=== PATIENT | female | born 1995 | race Caucasian/White ===

== ENCOUNTER 2017-08-01 18:02 | Emergency (ER) | payer BC ==
[2017-08-01 18:19] VITALS: RESP 18; TEMP 97.7
--- NOTE | 2017-08-01 18:38 | EDPHY ---
H & P Stated Complaint: dx flu/eyes reddened and swollen with blurry vision Time Seen by Provider: 08/01/17 18:37 HPI/ROS: CHIEF COMPLAINT: Anxiety, photophobia, recent diagnosis of influenza HISTORY OF PRESENT ILLNESS: The patient was recently diagnosed with influenza. She is on day 3 of Tamiflu. The patient was also given prescriptions for Tessalon Perles, Phenergan and dexamethasone. The patient reportedly developed some blurry vision, mild periorbital edema and slight photophobia while out in the sun today. She denies any fever, neck pain, numbness or weakness. The patient denies any additional acute complaints. The patient has been feeling quite anxious slightly. She has certainly been under a significant amount of stress. REVIEW OF SYSTEMS: A comprehensive 10 point review of systems is otherwise negative aside from elements mentioned in the history of present illness. Source: Patient Exam Limitations: No limitations - Personal History LMP (Females 10-55): Over 28 Days Ago Current Tetanus/Diphtheria Vaccine: Yes - Medical/Surgical History Hx Asthma: No Hx Chronic Respiratory Disease: No Hx Diabetes: No Hx Cardiac Disease: No Hx Renal Disease: No Hx Cirrhosis: No Hx Alcoholism: No Hx HIV/AIDS: No Hx Splenectomy or Spleen Trauma: No Other PMH: flu - Social History Smoking Status: Current some day smoker - Physical Exam Exam: General Appearance: Alert, no distress Eyes: Mild conjunctival injection bilaterally viral appearance in nature, no fairly discharge, no proptosis, pupils equal and reactive ENT, Mouth: Mucous membranes moist Respiratory: There are no retractions, lungs are clear to auscultation Cardiovascular: Regular rate and rhythm Gastrointestinal: Abdomen is soft and nontender, no masses, bowel sounds normal Neurological: 5/5 strength all 4 extremities, cranial nerves 2-12 intact Skin: Warm and dry, no rashes Musculoskeletal: Neck is supple nontender without meningeal symptoms Extremities: symmetrical, full range of motion Constitutional: Initial Vital Signs Temperature (C) 36.5 C 08/01/17 18:15 Heart Rate 105 H 08/01/17 18:15 Respiratory Rate 18 08/01/17 18:15 Blood Pressure 123/74 H 08/01/17 18:15 O2 Sat (%) 96 08/01/17 18:15 O2 Delivery Mode Room Air Allergies/Adverse Reactions: No Known Allergies Allergy (Unverified 08/01/17 18:13) Home Medications: Medication Instructions Recorded Benzonatate 08/01/17 DEXAMETHASONE 08/01/17 Minastrin 24 Fe Chewable Tab 08/01/17 Proair Hfa 08/01/17 Prochlorperazine Maleate 08/01/17 Tamiflu 08/01/17 Medical Decision Making ED Course/Re-evaluation: The patient is well-appearing without influenza. She has no complaints of blurry vision currently. I believe her conjunctival injection and mild photophobia are a result of her current influenza infection. I do not see an indication to start antibiotics. She has been having some symptoms of anxiety and is currently quite stressed in life. I will recommend that she stop taking dexamethasone as this may be contributing to her symptoms. The patient has been given the contact number of our on-call cashier and salesperson for any ongoing ocular complaints. She is discharged home with customary aftercare instructions and return precautions. Departure - Departure Disposition: Home, Routine, Self-Care Clinical Impression: Influenza Condition: Good Instructions: Influenza (ED) Additional Instructions: 1. I recommend stopping the dexamethasone as this may be contributing to her symptoms. 2. Return to the ED for severe headache, numbness, weakness or other concerns. 3. Tylenol and ibuprofen as needed for pain. 4. Please follow up with the cashier and salesperson, Dr. Chang, you have been referred to for any ongoing visual complaints or concerns. Referrals: Aristides Babin MD [Medical Doctor] - As per Instructions
[2017-08-01 19:23] VITALS: BP 123/68; PULSE 98; O2SAT 94
== END 2017-08-01 19:22 | disposition home or self-care (01) ==
DX: J11.1 Influenza due to unidentified influenza virus with other respiratory manifestations (principal); F17.200 Nicotine dependence, unspecified, uncomplicated

== ENCOUNTER 2017-10-02 12:21 | Emergency (ER) | payer BC ==
[2017-10-02] MEDS ORDERED: ONDANSETRON DISINTEGRATING 4 MG TAB PO ONE (12:35)
[2017-10-02 13:25] VITALS: BP 113/62
--- NOTE | 2017-10-02 13:34 | EDPHY ---
H & P Stated Complaint: vomiting since this am--mid abd pain, diarrhea Time Seen by Provider: 10/02/17 13:33 HPI/ROS: HPI: This is a 21-year-old female who presents with Chief Complaint: vomiting since this am--mid abdominal pain, diarrhea Location: Periumbilical Quality: Sharp cramping pain Duration: Approximately 1-3 hours Signs and Symptoms: no fever, + nausea, + vomiting, no hematemesis, no blood in stool, no abdominal bloating, + diarrhea, no back pain, no urinary symptoms, no vaginal bleeding/discharge, no indigestion, no chest pain, no shortness of breath Timing: Intermittent episodes Severity: Moderate Context: 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 She mostly complains of periumbilical abdominal cramping. She says is worse right before bowel movement. She denies any fever/ urinary symptoms. LMP 1-7 days ago. She reports that she has been able to sip liquids. She has not tried anything for the pain. No recent foreign travel. No recent antibiotic use. No drinking of contaminated well water. Modifying Factors: None Comment: ROS: see HPI Constitutional: No fever, no chills, no weight loss Eyes: No blurred vision Respiratory: No shortness of breath, no cough Cardiovascular: No chest pain, no palpitations Gastrointestinal: + nausea, + vomiting, + diarrhea, no hematemesis, no blood in stool Genitourinary: No dysuria, no blood in urine Extremities: No myalgias, no edema Neurologic: No weakness, no numbness Skin: No rashes, no petechiae Hematologic: No bruising, no bleeding MEDICAL/SURGICAL/SOCIAL HISTORY: Medical history: Generally healthy. Does not take any regular medications. Surgical history: Denies Social history: Employed. College student. Family history noncontributory. CONSTITUTIONAL: Extremely well-appearing young adult white female, awake and alert, no obvious distress HEENT: Atraumatic and normocephalic, PERRL, EOMI. Nares patent; no rhinorrhea; no nasal mucosal edema. Tympanic membranes clear. Oropharynx clear, no exudate and moist pink mucosa. Airway patent. No lymphadenopathy. No meningismus. Cardiovascular: Normal S1/S2, regular rate, regular rhythm, without murmur rub or gallop. PULMONARY/CHEST: Symmetrical and nontender. Clear to auscultation bilaterally. Good air movement. No accessory muscle usage. ABDOMEN: Soft, nondistended, nontender, no rebound, no guarding, no peritoneal signs, no masses or organomegaly. No CVAT. EXTREMITIES: 2/2 pulses, strength 5/5, no deformities, no clubbing, no cyanosis or edema. NEUROLOGICAL: no focal neuro deficits. GCS 15. SKIN: Warm and dry, no erythema. no rash. Good capillary refill. Source: Patient Exam Limitations: No limitations - Personal History LMP (Females 10-55): 1-7 Days Ago - Medical/Surgical History Hx Asthma: No Hx Chronic Respiratory Disease: No Hx Diabetes: No Hx Cardiac Disease: No Hx Renal Disease: No Hx Cirrhosis: No Hx Alcoholism: No Hx HIV/AIDS: No Hx Splenectomy or Spleen Trauma: No Other PMH: denies - Social History Smoking Status: Current some day smoker Constitutional: Initial Vital Signs Temperature (C) 37.1 C 10/02/17 12:28 Heart Rate 125 H 10/02/17 12:28 Respiratory Rate 24 H 10/02/17 12:28 Blood Pressure 96/74 L 10/02/17 12:28 O2 Sat (%) 99 10/02/17 12:28 O2 Delivery Mode Room Air Allergies/Adverse Reactions: No Known Allergies Allergy (Unverified 08/01/17 18:13) Home Medications: Medication Instructions Recorded Benzonatate 08/01/17 DEXAMETHASONE 08/01/17 Minastrin 24 Fe Chewable Tab 08/01/17 Proair Hfa 08/01/17 Prochlorperazine Maleate 08/01/17 Tamiflu 08/01/17 Ondansetron Odt [Zofran Odt 4 mg 4 mg PO Q4 PRN #12 tab 10/02/17 (*)] Promethazine HCl [Phenergan 25mg 25 mg PO Q6 PRN #12 tab 10/02/17 (*)] Medical Decision Making ED Course/Re-evaluation: Labs, IV fluids, IV medications, urinalysis ordered Given 2 L normal saline, IV Toradol, IV Ativan, IV Zofran with near complete relief of symptoms. Patient was in the emergency room for 3 hr without any episodes of vomiting or diarrhea. 1450: Reassessed abdomen now soft and nontender. Low yield for surgical process. Offered patient imaging of her abdomen and she politely declined. Labs reviewed; mild leukocytosis noted. No signs of JOAQUÍN/electrolyte imbalance/ elevated LFTs/pancreatitis Drinking fluids and eating Julian crackers prior to discharge. Advised continue supportive care. Vital signs stable at discharge. Resolution of tachycardia. This patient was seen under the supervision of my secondary supervising physician. I evaluated care for this patient independently. Discussed this patient with Dr. Oliver who did not see the patient. Differential Diagnosis: Abdominal pain including but not limited to appendicitis, cholecystitis, gastritis and urinary tract infection. - Data Points Laboratory Results: Laboratory Results 10/02/17 13:08 10/02/17 13:08 10/02/17 10/02/17 10/02/17 13:08 13:08 13:08 WBC 15.12 10^3/uL H 10^3/uL (3.80-9.50) RBC 4.52 10^6/uL 10^6/uL (4.18-5.33) Hgb 14.9 g/dL g/dL (12.6-16.3) Hct 44.4 % % (38.0-47.0) MCV 98.2 fL fL (81.5-99.8) MCH 33.0 pg pg (27.9-34.1) MCHC 33.6 g/dL g/dL (32.4-36.7) RDW 12.1 % % (11.5-15.2) Plt Count 195 10^3/uL 10^3/uL (150-400) MPV 13.4 fL H fL (8.7-11.7) Neut % (Auto) 92.6 % H % (39.3-74.2) Lymph % (Auto) 4.0 % L % (15.0-45.0) Frontier % (Auto) 2.3 % L % (4.5-13.0) Eos % (Auto) 0.6 % % (0.6-7.6) Baso % (Auto) 0.1 % L % (0.3-1.7) Nucleat RBC Rel Count 0.0 % % (0.0-0.2) Absolute Neuts (auto) 13.99 10^3/uL H 10^3/uL (1.70-6.50) Absolute Lymphs (auto) 0.61 10^3/uL L 10^3/uL (1.00-3.00) Absolute Monos (auto) 0.35 10^3/uL 10^3/uL (0.30-0.80) Absolute Eos (auto) 0.09 10^3/uL 10^3/uL (0.03-0.40) Absolute Basos (auto) 0.02 10^3/uL 10^3/uL (0.02-0.10) Absolute Nucleated RBC 0.00 10^3/uL 10^3/uL (0-0.01) Immature Gran % 0.4 % % (0.0-1.1) Immature Gran # 0.06 10^3/uL 10^3/uL (0.00-0.10) Sodium 142 mEq/L mEq/L (135-145) Potassium 4.4 mEq/L mEq/L (3.5-5.2) Chloride 107 mEq/L mEq/L (97-110) Carbon Dioxide 21 mEq/l L mEq/l (22-31) Anion Gap 14 mEq/L mEq/L (8-16) BUN 15 mg/dL mg/dL (7-23) Creatinine 0.6 mg/dL mg/dL (0.6-1.0) Estimated GFR > 60 Glucose 88 mg/dL mg/dL (70-100) Calcium 9.1 mg/dL mg/dL (8.5-10.4) Total Bilirubin 0.9 mg/dL mg/dL (0.1-1.4) Conjugated Bilirubin 0.5 mg/dL mg/dL (0.0-0.5) Unconjugated Bilirubin 0.4 mg/dL mg/dL (0.0-1.1) AST 24 IU/L IU/L (14-46) ALT 21 IU/L IU/L (9-52) Alkaline Phosphatase 57 IU/L IU/L (38-126) Total Protein 7.3 g/dL g/dL (6.3-8.2) Albumin 4.3 g/dL g/dL (3.5-5.0) Lipase 112 IU/L IU/L (23-300) Beta HCG, Qual NEGATIVE Medications Given: Discontinued Medications Sodium Chloride (Ns) 1,000 mls @ 0 mls/hr IV EDNOW ONE; Wide Open PRN Reason: Protocol Stop: 10/02/17 13:40 Last Admin: 10/02/17 13:45 Dose: 1,000 mls Sodium Chloride (Ns) 1,000 mls @ 0 mls/hr IV EDNOW ONE; Wide Open PRN Reason: Protocol Stop: 10/02/17 13:40 Last Admin: 10/02/17 13:45 Dose: 1,000 mls Ketorolac Tromethamine (Toradol) 30 mg IVP EDNOW ONE Stop: 10/02/17 13:40 Last Admin: 10/02/17 13:46 Dose: 30 mg Lorazepam (Ativan Injection) 1 mg IVP EDNOW ONE Stop: 10/02/17 13:40 Last Admin: 10/02/17 13:45 Dose: 1 mg Ondansetron HCl (Zofran Odt) 4 mg PO EDNOW ONE Stop: 10/02/17 12:36 Last Admin: 10/02/17 12:36 Dose: 4 mg Ondansetron HCl (Zofran) 4 mg IVP EDNOW ONE Stop: 10/02/17 13:40 Last Admin: 10/02/17 13:45 Dose: 4 mg Departure - Departure Disposition: Home, Routine, Self-Care Clinical Impression: Gastroenteritis Condition: Good Instructions: Gastroenteritis (ED) Additional Instructions: Consume a minimum of 8-10 glasses of water or electrolyte fluid replacement drinks that include Gatorade, Powerade, Pedialyte. Eat a bland diet for the next 48 hours and then slowly advance as tolerated. Take Zofran 1 tab every 4 hours as needed for nausea, vomiting. Take promethazine every 6 hours as needed N/V. (2nd line option) Return to the Emergency Room if symptoms do not resolve in the next 72 hours, you spike a fever > 102 F, or experience intractable abdominal pain/nausea/ vomiting. Referrals: [facility] [Other] - 3-4 days, if not improved Stand Alone Forms: School Excuse Prescriptions: Ondansetron Odt [Zofran Odt 4 mg (*)] 4 mg PO Q4 PRN #12 tab PRN Reason: Nausea/Vomiting, Use 1st Promethazine HCl [Phenergan 25mg (*)] 25 mg PO Q6 PRN #12 tab PRN Reason: Nausea/Vomiting, Use 2nd
[2017-10-02] MEDS ORDERED: LORazepam 2 MG/ML INJ IVP ONE (13:39)
[2017-10-02] MEDS ORDERED: ONDANSETRON 4 MG/2 ML VIAL IVP ONE (13:39)
[2017-10-02] MEDS ORDERED: KETOROLAC 30 MG/1 ML SDV IVP ONE (13:39)
[2017-10-02] MEDS ORDERED: NS 1,000 ML IV ONE ×2 (13:39)
[2017-10-02 14:25] LABS: PLATELET COUNT 195 10^3/uL (150-400)
== END 2017-10-02 15:08 | disposition home or self-care (01) ==
DX: K52.9 Noninfective gastroenteritis and colitis, unspecified (principal); E86.9 Volume depletion, unspecified; F17.200 Nicotine dependence, unspecified, uncomplicated
CPT/HCPCS: 96374; J1885; J2060; J2405

== ENCOUNTER 2017-11-22 04:28 | Emergency (ER) | payer BC ==
--- NOTE | 2017-11-22 04:51 | EDPHY ---
H & P Stated Complaint: SI, L [place] Time Seen by Provider: 11/22/17 04:50 HPI/ROS: Chief Complaint: Depression, cutting HPI: 22-year-old woman with a history of depression and cutting in the past is presenting this morning after drinking alcohol last night and cutting her left forearm with a razor. Patient states she has a history of depression. She is not currently under treatment. She denies being suicidal and feels that she was just cutting as a release secondary to her intoxication. She says that this has been a pattern for her in the past. Is having some depression but denies being suicidal. Has been actively seeking a new therapist that she lost her last and due to insurance issues. Has had prior evaluations and hospitalizations in the past. Does not feel that she is a danger to herself at this time and she is lashanda for safety. She is brought in by her boyfriend at his request for further evaluation. She is not currently wish to have a mental health evaluation. She is otherwise alert and oriented acting appropriately. ROS: 10 point Review of Systems is negative except as noted in the HPI. PMH: Depression Social History: No smoking, occasional alcohol, occasional cocaine Family History: non-contributory Physical Exam: Gen: Awake, Alert, No Distress HEENT: Nose: no rhinorrhea Eyes: PERRLA, EOMI Mouth: Moist mucosa Neck: Supple, no JVD Chest: nontender, lungs clear to auscultation Heart: S1, S2 normal, no murmur Abd: Soft, non-tender, no guarding Back: no CVA tenderness, no midline tenderness Ext: no edema, non-tender, left forearm she has several superficial nonsuturable lacerations or left forearm. There is no erythema. There is no discharge. Skin: no rash Neuro: CN II-XII intact, Sensation grossly intact, Strength 5/5 in bilateral upper and lower extremities - Personal History LMP (Females 10-55): 1-7 Days Ago Current Tetanus Diphtheria and Acellular Pertussis (TDAP): Yes - Medical/Surgical History Hx Asthma: No Hx Chronic Respiratory Disease: No Hx Diabetes: No Hx Cardiac Disease: No Hx Renal Disease: No Hx Cirrhosis: No Hx Alcoholism: No Hx HIV/AIDS: No Hx Splenectomy or Spleen Trauma: No Other PMH: severe depression, anixety, PTSD, - Social History Smoking Status: Current some day smoker Constitutional: Initial Vital Signs Temperature (C) 36.7 C 11/22/17 04:29 Heart Rate 105 H 11/22/17 04:29 Respiratory Rate 18 11/22/17 04:29 Blood Pressure 136/92 H 11/22/17 04:29 O2 Sat (%) 97 11/22/17 04:29 O2 Delivery Mode Room Air Allergies/Adverse Reactions: No Known Allergies Allergy (Unverified 11/22/17 04:29) Home Medications: Medication Instructions Recorded Benzonatate 08/01/17 DEXAMETHASONE 08/01/17 Minastrin 24 Fe Chewable Tab 08/01/17 Proair Hfa 08/01/17 Prochlorperazine Maleate 08/01/17 Tamiflu 08/01/17 Ondansetron Odt [Zofran Odt 4 mg 4 mg PO Q4 PRN #12 tab 10/02/17 (*)] Promethazine HCl [Phenergan 25mg 25 mg PO Q6 PRN #12 tab 10/02/17 (*)] Medical Decision Making ED Course/Re-evaluation: 22-year-old woman with a history depression who was cutting last night after drinking alcohol. She is not clinically sober. She is lashanda for safety. She is in agreement with the plan for discharge and follow up with [facility] for any concerns. She is actively seeking additional help. She does not meet any criteria for mental health hold at this time. Lacerations have been cleaned and dressed here. She will return for any concerns, she is in agreement and comfortable with this plan as is her boyfriend. Departure - Departure Disposition: Home, Routine, Self-Care Clinical Impression: Forearm laceration Condition: Good Instructions: Laceration Without Closure (ED), Depression (ED) Additional Instructions: Please follow up with [facility] later today for further resources for your depression. Return to the emergency department for suicidal thoughts, hopelessness, fevers, chills, discharge from your wounds, or any other concerns. Referrals: [facility],. [Clinic] - As per Instructions
[2017-11-22 05:19] VITALS: BP 131/87
== END 2017-11-22 05:42 | disposition home or self-care (01) ==
LOC: EEVIPCON 04:28
DX: S51.812A Laceration without foreign body of left forearm, initial encounter (principal); F17.200 Nicotine dependence, unspecified, uncomplicated; X78.8XXA Intentional self-harm by other sharp object, initial encounter; Y99.8 Other external cause status; Y93.89 Activity, other specified